=== PATIENT | male | born 1950 | race Hispanic/Latino ===

== ENCOUNTER 2022-08-03 09:38 | Emergency (ER) | payer MEDICARE, OTHER ==
[~2022-08-03] VITALS: Ht 165.1 cm; Wt 63.5 kg
[2022-08-03] MEDS: HYDROCODONE/APAP 10MG-325MG TAB PO ONE (10:27)
[2022-08-03] MEDS: BUPIVACAINE HCL 0.5% 10ML MPF VIAL INJ ONE (10:27)
[2022-08-03] MEDS ORDERED: ULTRAM50 MG PO (11:30)
== END 2022-08-03 11:39 | disposition home or self-care (01) ==
LOC: ER 09:47
DX: S63.251A Unspecified dislocation of left index finger, initial encounter (principal); X58.XXXA Exposure to other specified factors, initial encounter; Y92.89 Other specified places as the place of occurrence of the external cause
CPT/HCPCS: 99284